=== PATIENT | female | born 1970 | race Caucasian/White ===

== ENCOUNTER → 2016-05-29 | Outpatient (REF) | payer OTHER | LOC: M LAB REF 17:38 | PROVIDERS: ATTEND Family Medicine | DX: Z20.2 Contact with and (suspected) exposure to infections with a predominantly sexual mode of transmission (principal) ==

== ENCOUNTER → 2016-06-12 | Outpatient (REF) | payer OTHER | LOC: M LAB REF 11:57 | PROVIDERS: ATTEND Family Medicine | DX: R55 Syncope and collapse (principal) ==

== ENCOUNTER → 2016-08-12 | Outpatient (CLI) | payer OTHER ==
--- NOTE | 2016-08-12 15:38 | REP ---
Clinical: Right lower extremity pain . Technique: Chavez scale and color Doppler evaluation using linear high frequency transducer. Findings: Ultrasound examination of the right lower extremity deep venous structures from the common femoral vein to the popliteal vein demonstrates normal compressibility flow and wave patterns in response to respiration and augmentation. There is no evidence for deep venous thrombosis. Impression: No evidence for deep venous thrombosis. Signed by Zackary Roman MD 08/12/2016 03:29 P
== END ==
LOC: M RAD 15:09
PROVIDERS: ATTEND Nurse Practitioner Family
DX: M79.661 Pain in right lower leg (principal)

== ENCOUNTER → 2016-09-04 | Outpatient (REF) | payer OTHER ==
[2016-09-04 14:13] LABS: CALCIUM OXALATE CRYSTALS SMALL
== END ==
LOC: M LAB REF 13:04
PROVIDERS: ATTEND Family Medicine
DX: R39.0 Extravasation of urine (principal)

== ENCOUNTER → 2016-09-08 | Outpatient (REF) | payer OTHER ==
[2016-09-08 19:33] LABS: VITAMIN B12 LEVEL 291 PG/ML (247-911)
[2016-09-08 19:59] LABS: FERRITIN 13 NG/ML (8-252)
== END ==
LOC: M LAB REF 17:28
PROVIDERS: ATTEND Family Medicine
DX: D64.9 Anemia, unspecified (principal)

== ENCOUNTER → 2016-09-25 | Outpatient (REF) | payer OTHER ==
[~2016-09-25] MED LIST: LISI10TA4 PO; WELLTAB40 PO; XANA0.25 PO; ZOLO100T PO
== END ==
LOC: M LAB REF 12:58
PROVIDERS: ATTEND Nurse Practitioner Family
DX: R68.2 Dry mouth, unspecified (principal)

== ENCOUNTER → 2016-10-16 | Outpatient (CLI) | payer OTHER ==
[~2016-10-16] MED LIST changes: +METHACHOLINE KIT (J7674) INH ONE
--- NOTE | 2016-10-16 12:08 | PFTRPT ---
Tech: Junior NIXON RRT Age: 46 Sex: Female Race: Height: 66.00 Inches Weight: 260.00 Lbs BSA: 2.24 Diagnosis: J45.31 METHACHOLINE CHALLENGE REPORT: ORDERING PROVIDER: Marek Keen DATE OF SERVICE: 10/16/16 INTERPRETATION: The study was of excellent technical quality. Under protocol, methacholine was administered. At a dose of 2.5 mg (13.875 CDUs), a 28% decline in the FEV1 was noted. The PC20 of 0.73 is significant. Flow rates returned to baseline post bronchodilator administration. IMPRESSION: Positive methacholine challenge study. MTDD
== END ==
LOC: M CARPUL 10:56
PROVIDERS: ATTEND Nurse Practitioner Family
DX: J45.31 Mild persistent asthma with (acute) exacerbation (principal)

== ENCOUNTER 2016-10-31 09:21 | Emergency (ER) | payer OTHER ==
[~2016-10-31] VITALS: Ht 167.6 cm; Wt 116.8 kg
[2016-10-31] MEDS ORDERED: XANA0.25 PO (09:29)
[2016-10-31] MEDS ORDERED: LISI10TA4 PO (09:29)
[2016-10-31] MEDS ORDERED: WELLTAB40 PO (09:29)
[2016-10-31] MEDS ORDERED: ZOLO100T PO (09:29)
[2016-10-31] MEDS ORDERED: RABIES VACCINE HUMAN 2.5 INTERNATIONAL UNITS/ML VIAL (90675) IM ONE (10:00)
[2016-10-31] MEDS ORDERED: RABIES IMMUNE GLOBULIN 1500 INTERNATIONAL UNITS/10 ML VIAL (90375) IM ONE ×2 (10:00)
[2016-10-31] MEDS ORDERED: RABIES IMMUNE GLOBULIN 300 INTERNATIONAL UNITS/2 ML VIAL (90375) IM ONE (10:15)
[2016-10-31 11:08] VITALS: BP 119/79
== END 2016-10-31 11:19 | disposition home or self-care (01) ==
LOC: M ED 09:21
DX: Z20.3 Contact with and (suspected) exposure to rabies (principal); Z23 Encounter for immunization; I10 Essential (primary) hypertension; J45.909 Unspecified asthma, uncomplicated; Z86.718 Personal history of other venous thrombosis and embolism; Z87.891 Personal history of nicotine dependence; Z79.899 Other long term (current) drug therapy; Z91.041 Radiographic dye allergy status; Z88.8 Allergy status to other drugs, medicaments and biological substances; Z88.5 Allergy status to narcotic agent

== ENCOUNTER → 2016-11-19 | Outpatient (REF) | payer OTHER ==
[~2016-11-19] MED LIST changes: -METHACHOLINE KIT (J7674) INH ONE
[2016-11-19 14:37] LABS: CONTROL LINE HPYORI INT CTR LINE PRESENT
[2016-11-19 14:39] LABS: AMYLASE 23 U/L (25-115)
== END ==
LOC: M LAB REF 13:32
PROVIDERS: ATTEND Nurse Practitioner Family
DX: R10.13 Epigastric pain (principal)

== ENCOUNTER → 2017-02-09 | Outpatient (REF) | payer OTHER | LOC: M LAB REF 13:58 | PROVIDERS: ATTEND Physician Assistant Medical | DX: J02.9 Acute pharyngitis, unspecified (principal) ==

== ENCOUNTER 2017-03-03 11:54 | Emergency (ER) | payer OTHER ==
[~2017-03-03] VITALS: Ht 167.6 cm; Wt 119.5 kg
[2017-03-03] MEDS ORDERED: CODE30TA3 PO (12:06)
[2017-03-03] MEDS ORDERED: ASPIRIN 81 MG CHEW TABLET PO ONE (12:15)
[2017-03-03 12:34] LABS: BASO % 0.3 % (0.0-1.0); EOS # 0.1 10^3/uL (0.0-0.50); IMMATURE GRANULOCYTE % 0.2 % (0-0); LYMPH # 1.7 10^3/uL (1.5-4.5); LYMPH % 28.2 % (24.0-44.0); MEAN CORPUSCULAR HEMOGLOBIN 29.8 pg (27.0-33.0); MEAN CORPUSCULAR HGB CONC 32.6 g/dl (32.0-36.5); MEAN CORPUSCULAR VOLUME 91.3 fl (80.0-96.0); MONO # 0.5 10^3/uL (0.0-0.8); MONO % 8.3 % (0.0-5.0); NEUTROPHILS # 3.8 10^3/uL (1.8-7.7); PLATELET COUNT, AUTOMATED 262 10^3/uL (150-450); RED CELL DISTRIBUTION WIDTH 12.8 % (11.5-14.5); WHITE BLOOD COUNT 6.1 10^3/uL (4.0-10.0)
--- NOTE | 2017-03-03 12:37 | ECGEPIP ---
Stationary ECG Study 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
--- NOTE | 2017-03-03 12:45 | REP ---
Chest one-view HISTORY: Chest pain Comparison: None The lungs are clear. The heart is normal in size. The pulmonary vasculature is normal in appearance. Impression: No acute disease. Signed by Marek Herrera MD 03/03/2017 12:36 P
[2017-03-03] MEDS ORDERED: GI COCKTAIL 50ML BTL(HYOSCYAMINE/MAALOX/LIDOCAINE VISCOUS)(1:3:1) PO ONE (13:00)
[2017-03-03 13:01] LABS: ALBUMIN 3.2 GM/DL (3.2-5.2); ALBUMIN/GLOBULIN RATIO 0.89 (1.00-1.93); ALKALINE PHOSPHATASE 93 U/L (45-117); ALT/SGPT 29 U/L (12-78); ANION GAP 4 MEQ/L (8-16); AST/SGOT 40 U/L (7-37); BILIRUBIN,DIRECT < 0.1 MG/DL (0.0-0.2); BILIRUBIN,TOTAL 0.3 MG/DL (0.2-1.0); BLOOD UREA NITROGEN 16 MG/DL (7-18); CALCIUM LEVEL 8.2 MG/DL (8.5-10.1); CARBON DIOXIDE LEVEL 29 MEQ/L (21-32); CHLORIDE LEVEL 105 MEQ/L (98-107); CREATININE FOR GFR 0.82 MG/DL (0.55-1.02); GLOMERULAR FILTRATION RATE > 60.0 (>58); GLUCOSE, FASTING 87 MG/DL (70-105); POTASSIUM SERUM 4.2 MEQ/L (3.5-5.1); SODIUM LEVEL 138 MEQ/L (136-145); TOTAL PROTEIN 6.8 GM/DL (6.4-8.2)
[2017-03-03 18:12] VITALS: BP 120/79
--- NOTE | 2017-03-04 06:56 | ECGEPIP ---
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
== END 2017-03-03 18:20 | disposition home or self-care (01) ==
LOC: M ED 11:54
DX: K29.70 Gastritis, unspecified, without bleeding (principal); R10.13 Epigastric pain; R94.31 Abnormal electrocardiogram [ECG] [EKG]; I10 Essential (primary) hypertension; J45.909 Unspecified asthma, uncomplicated; E55.9 Vitamin D deficiency, unspecified; F41.9 Anxiety disorder, unspecified; F32.9 Major depressive disorder, single episode, unspecified; D64.9 Anemia, unspecified; Z98.84 Bariatric surgery status; Z87.891 Personal history of nicotine dependence; Z82.49 Family history of ischemic heart disease and other diseases of the circulatory system; Z79.899 Other long term (current) drug therapy; Z88.5 Allergy status to narcotic agent; Z91.041 Radiographic dye allergy status; Z88.8 Allergy status to other drugs, medicaments and biological substances

== ENCOUNTER → 2017-03-16 | Outpatient (REF) | payer OTHER ==
[~2017-03-16] MED LIST changes: +CODE30TA3 PO
== END ==
LOC: M LAB REF 18:21
PROVIDERS: ATTEND Family Medicine
DX: E53.8 Deficiency of other specified B group vitamins (principal)

== ENCOUNTER → 2017-04-08 | Outpatient (CLI) | payer OTHER ==
[2017-04-08 13:14] LABS: BASO # 0.1 10^3/uL (0.0-0.2); BASO % 0.7 % (0.0-1.0); EOS # 0.1 10^3/uL (0.0-0.50); HEMATOCRIT 37.1 % (36.0-47.0); IMMATURE GRANULOCYTE % 0.1 % (0-0); LYMPH # 1.8 10^3/uL (1.5-4.5); LYMPH % 26.4 % (24.0-44.0); MEAN CORPUSCULAR HEMOGLOBIN 29.6 pg (27.0-33.0); MEAN CORPUSCULAR HGB CONC 32.3 g/dl (32.0-36.5); MEAN CORPUSCULAR VOLUME 91.4 fl (80.0-96.0); MONO # 0.6 10^3/uL (0.0-0.8); MONO % 8.5 % (0.0-5.0); NEUTROPHILS # 4.3 10^3/uL (1.8-7.7); NEUTROPHILS % 63.3 % (36.0-66.0); PLATELET COUNT, AUTOMATED 270 10^3/uL (150-450); RED BLOOD COUNT 4.06 10^6/uL (4.00-5.40); RED CELL DISTRIBUTION WIDTH 12.8 % (11.5-14.5); WHITE BLOOD COUNT 6.7 10^3/uL (4.0-10.0)
[2017-04-08 13:48] LABS: ALBUMIN 3.4 GM/DL (3.2-5.2); ALBUMIN/GLOBULIN RATIO 1.03 (1.00-1.93); ALKALINE PHOSPHATASE 81 U/L (45-117); ALT/SGPT 20 U/L (12-78); ANION GAP 7 MEQ/L (8-16); AST/SGOT 13 U/L (7-37); BILIRUBIN,TOTAL 0.2 MG/DL (0.2-1.0); BLOOD UREA NITROGEN 19 MG/DL (7-18); CALCIUM LEVEL 8.6 MG/DL (8.5-10.1); CARBON DIOXIDE LEVEL 24 MEQ/L (21-32); CHLORIDE LEVEL 110 MEQ/L (98-107); CREATININE FOR GFR 0.85 MG/DL (0.55-1.02); GLOMERULAR FILTRATION RATE > 60.0 (>58); GLUCOSE, FASTING 81 MG/DL (70-105); POTASSIUM SERUM 4.6 MEQ/L (3.5-5.1); RHEUMATOID FACTOR QUANT < 10.0 IU/ML (0-15.0); SODIUM LEVEL 141 MEQ/L (136-145); TOTAL PROTEIN 6.7 GM/DL (6.4-8.2)
[2017-04-08 14:03] LABS: ERYTHROCYTE SEDIMENTATION RATE 8 mm/hr (0-20)
[2017-04-09 10:46] LABS: ALBUMIN 3.75 GM/DL (3.29-5.55); ALPHA-1-GLOBULIN % 4.9 % (2.9-4.9); ALPHA-1-GLOBULINS 0.33 GM/DL (0.17-0.41); ALPHA-2-GLOBULINS 0.58 GM/DL (0.42-0.99); ALPHA-2-GLOBULINS % 8.6 % (7.1-11.8); BETA-1-GLOBULINS 0.52 GM/DL (0.28-0.60); BETA-1-GLOBULINS % 7.7 % (4.7-7.2); BETA-2-GLOBULINS 0.36 GM/DL (0.19-0.55); BETA-2-GLOBULINS % 5.4 % (3.2-6.5); GAMMA GLOBULIN % 17.4 % (11.1-18.8); GAMMA GLOBULINS 1.17 GM/DL (0.65-1.58)
[2017-04-14 00:08] LABS: ANCA-ATYPICAL <1:20 titer (Neg:<1:20); ANGIOTENSIN 1 CONVERTING ENZYM 31 U/L (14-82); ANTI DOUBLE STRAND-DNA AB 2 IU/mL (0-9); ANTINUCLEAR ANTIBODIES DIRECT Negative (Negative); CERULOPLASMIN 35.2 mg/dL (19.0-39.0); COPPER PLASMA 134 ug/dL (72-166); CYTOPLASMIC NEUTROP AB ANCA-C <1:20 titer (Neg:<1:20); LEAD BLOOD ADULT <1 ug/dL (0-19); Lyme Disease IgG/IgM Antibodie <0.91 ISR (0.00-0.90); Lyme Disease IgM Ab Quantitati <0.80 index (0.00-0.79); MERCURY LEVEL None Detected ug/L (0.0-14.9); PERINUCLEAR AB ANCA-P <1:20 titer (Neg:<1:20); SJOGREN'S ANTI SS-A <0.2 AI (0.0-0.9); SJOGREN'S ANTI SS-B <0.2 AI (0.0-0.9); VITAMIN B1 LEVEL WHOLE BLOOD 124.4 nmol/L (66.5-200.0); VITAMIN B6,PYRIDOXAL PHOSPHATE 5.6 ug/L (2.0-32.8); VITAMIN E LEVEL 9.2 mg/L (5.3-16.8)
[2017-04-14 10:45] LABS: DRVV SCREEN 41.6 SEC
== END ==
LOC: M SMT 09:39
DX: G60.9 Hereditary and idiopathic neuropathy, unspecified (principal)
CPT/HCPCS: 82525

== ENCOUNTER → 2017-05-21 | Outpatient (CLI) | payer OTHER ==
[2017-05-21 19:02] LABS: FREE T3 2.8 PG/ML (2.2-4.0); FREE T4 1.13 NG/DL (0.76-1.46); IMMUNOGLOBULIN G 995 MG/DL (681-1648)
[2017-05-22 09:06] LABS: THYROGLOBULIN ANTIBODY < 15.0 U/ML (<60.0); THYROID PEROXIDASE ANTIBODY < 28.0 U/ML (<60.0)
== END ==
LOC: M SMT 12:17
DX: F41.9 Anxiety disorder, unspecified (principal)
CPT/HCPCS: 86800

== ENCOUNTER → 2017-05-27 | Outpatient (REF) | payer OTHER ==
[2017-05-29 14:36] LABS: ALUMINUM LEVEL 7 ug/L (0-9)
== END ==
LOC: M LAB REF 13:33
DX: F41.9 Anxiety disorder, unspecified (principal)

== ENCOUNTER → 2017-06-18 | Outpatient (REF) | payer OTHER ==
[2017-06-18 14:39] LABS: LUTEINIZING HORMONE 6.3 mIU/mL; PROGESTERONE 0.4 NG/ML; TOTAL 25(OH) VITAMIN D 24.7 NG/ML (30.0-100.0)
[2017-06-18 14:40] LABS: FOLATE 8.8 NG/ML; FOLLICLE STIMULATING HORMONE 5.9 mIU/mL; VITAMIN B12 LEVEL 458 PG/ML
[2017-06-18 14:42] LABS: ANION GAP 5 MEQ/L (8-16); BLOOD UREA NITROGEN 13 MG/DL (7-18); CALCIUM LEVEL 8.4 MG/DL (8.5-10.1); CARBON DIOXIDE LEVEL 28 MEQ/L (21-32); CHLORIDE LEVEL 109 MEQ/L (98-107); CREATININE FOR GFR 0.83 MG/DL (0.55-1.30); GLOMERULAR FILTRATION RATE > 60.0 (>58); GLUCOSE, FASTING 75 MG/DL (70-100); POTASSIUM SERUM 4.5 MEQ/L (3.5-5.1); SODIUM LEVEL 142 MEQ/L (136-145)
[2017-06-23 10:14] LABS: DEHYDROEPIANDROSTERONE UNCONJ 84 ng/dL (31-701); ESTROGENS TOTAL 297 pg/mL (.); METHYLMALONIC ACID 233 nmol/L (0-378); TESTOSTERONE FREE (DIRECT) 1.2 pg/mL (0.0-4.2)
[2017-06-23 10:14] LABS: INSULIN LEVEL 5.6 uIU/mL (2.6-24.9)
== END ==
LOC: M LAB REF 13:27
DX: E53.8 Deficiency of other specified B group vitamins (principal); I10 Essential (primary) hypertension; F41.9 Anxiety disorder, unspecified; F41.0 Panic disorder [episodic paroxysmal anxiety]
CPT/HCPCS: 82746

== ENCOUNTER → 2017-07-09 | Outpatient (CLI) | payer OTHER ==
[~2017-07-09] MED LIST changes: -CODE30TA3 PO; +LIDOCAINE 1% SDV INJ 30 ML VIAL As Ordered; -LISI10TA4 PO; +MIDAZOLAM INJ 2 MG/2 ML VIAL (J2250) As Ordered; -WELLTAB40 PO; -XANA0.25 PO; -ZOLO100T PO; +fentaNYL 100 MCG/2 ML INJECTION (J3010) As Ordered
[2017-07-09 16:14] LABS: CSF TUBE# GLU TUBE 1; CSF TUBE# TP TUBE 1; GLUCOSE CSF 51 MG/DL (40-75); TOTAL PROTEIN,CSF 28.9 MG/DL (15-45)
[2017-07-09 16:35] LABS: CSF RBC < 2 10^3/uL (<2)
[2017-07-09 16:36] LABS: APPEARANCE, CSF CLEAR (CLEAR); COLOR, CSF COLORLESS (COLORLESS); CSF DIFF IF INDICATED? NO (NO); CSF WBC 1 /uL (0-10)
[2017-07-09 16:37] LABS: CSF TUBE# CELL CNT TUBE 2
[2017-07-14 00:07] LABS: IMMUNOGLOBULIN G CSF 1.7 mg/dL (0.0-8.6)
== END ==
LOC: M PAIN 12:30
DX: G37.9 Demyelinating disease of central nervous system, unspecified (principal)
CPT/HCPCS: J2250

== ENCOUNTER → 2017-10-22 | Outpatient (CLI) | payer OTHER ==
[2017-10-22 13:24] LABS: BASO % 0.6 % (0.0-1.0); EOS # 0.1 10^3/uL (0.0-0.50); EOS % 1.3 % (0.0-3.0); HEMATOCRIT 39.2 % (36.0-47.0); HEMOGLOBIN 12.5 g/dl (12.0-15.5); IMMATURE GRANULOCYTE % 0.3 % (0-3.0); LYMPH # 2.1 10^3/uL (1.5-4.5); LYMPH % 33.3 % (24.0-44.0); MEAN CORPUSCULAR HGB CONC 31.9 g/dl (32.0-36.5); MONO # 0.5 10^3/uL (0.0-0.8); NEUTROPHILS # 3.5 10^3/uL (1.8-7.7); NEUTROPHILS % 56.5 % (36.0-66.0); PLATELET COUNT, AUTOMATED 293 10^3/uL (150-450); RED BLOOD COUNT 4.17 10^6/uL (4.00-5.40); RED CELL DISTRIBUTION WIDTH 13.3 % (11.5-14.5); WHITE BLOOD COUNT 6.2 10^3/uL (4.0-10.0)
[2017-10-22 14:10] LABS: ALBUMIN 3.3 GM/DL (3.2-5.2); ALBUMIN/GLOBULIN RATIO 0.85 (1.00-1.93); ALKALINE PHOSPHATASE 79 U/L (45-117); ALT/SGPT 25 U/L (12-78); ANION GAP 7 MEQ/L (8-16); AST/SGOT 14 U/L (7-37); BILIRUBIN,TOTAL 0.3 MG/DL (0.2-1.0); BLOOD UREA NITROGEN 20 MG/DL (7-18); CALCIUM LEVEL 8.5 MG/DL (8.5-10.1); CARBON DIOXIDE LEVEL 24 MEQ/L (21-32); CHLORIDE LEVEL 112 MEQ/L (98-107); CREATININE FOR GFR 0.94 MG/DL (0.55-1.30); FREE T4 1.02 NG/DL (0.76-1.46); GLOMERULAR FILTRATION RATE > 60.0 (>58); GLUCOSE, FASTING 71 MG/DL (70-100); POTASSIUM SERUM 4.7 MEQ/L (3.5-5.1); SODIUM LEVEL 143 MEQ/L (136-145); TOTAL PROTEIN 7.2 GM/DL (6.4-8.2)
[2017-10-24 00:09] LABS: Lyme Disease IgG/IgM Antibodie <0.91 ISR (0.00-0.90); Lyme Disease IgM Ab Quantitati <0.80 index (0.00-0.79)
== END ==
LOC: M SMT 08:45
DX: R53.81 Other malaise (principal)
CPT/HCPCS: 84443

== ENCOUNTER → 2018-01-14 | Outpatient (CLI) | payer OTHER ==
[2018-01-14 14:00] LABS: ALBUMIN 3.5 GM/DL (3.2-5.2); ALBUMIN/GLOBULIN RATIO 1.06 (1.00-1.93); ALKALINE PHOSPHATASE 84 U/L (45-117); ALT/SGPT 23 U/L (12-78); ANION GAP 6 MEQ/L (8-16); AST/SGOT 16 U/L (7-37); BILIRUBIN,TOTAL 0.2 MG/DL (0.2-1.0); BLOOD UREA NITROGEN 19 MG/DL (7-18); CALCIUM LEVEL 8.7 MG/DL (8.5-10.1); CARBON DIOXIDE LEVEL 26 MEQ/L (21-32); CHLORIDE LEVEL 107 MEQ/L (98-107); FREE T3 2.9 PG/ML (2.2-4.0); FREE T4 1.04 NG/DL (0.76-1.46); GLOMERULAR FILTRATION RATE > 60.0 (>58); GLUCOSE, FASTING 94 MG/DL (70-100); POTASSIUM SERUM 4.9 MEQ/L (3.5-5.1); SODIUM LEVEL 139 MEQ/L (136-145); TOTAL PROTEIN 6.8 GM/DL (6.4-8.2)
[2018-01-14 14:03] LABS: FOLLICLE STIMULATING HORMONE 12.7 mIU/mL; LUTEINIZING HORMONE 13.1 mIU/mL; PROGESTERONE 0.8 NG/ML; TOTAL 25(OH) VITAMIN D 40.3 NG/ML (30.0-100.0)
[2018-01-20 08:07] LABS: ANTINUCLEAR ANTIBODIES DIRECT Negative (Negative); DEHYDROEPIANDROSTERONE UNCONJ 55 ng/dL (31-701); TESTOSTERONE FREE (DIRECT) < 0.2 pg/mL (0.0-4.2)
[2018-01-20 08:07] LABS: ESTROGENS TOTAL 117 pg/mL (.)
== END ==
LOC: M SMT 10:45
DX: F41.0 Panic disorder [episodic paroxysmal anxiety] (principal); E28.0 Estrogen excess; E03.8 Other specified hypothyroidism
CPT/HCPCS: 83001

== ENCOUNTER → 2020-03-14 | Outpatient (REF) | payer BC, OTHER ==
[~2020-03-14] MED LIST changes: +ACET300T47 PO; -LIDOCAINE 1% SDV INJ 30 ML VIAL As Ordered; +LISI10TA4 PO; -MIDAZOLAM INJ 2 MG/2 ML VIAL (J2250) As Ordered; +WELLTAB40 PO; +XANA0.25 PO; +ZOLO100T PO; -fentaNYL 100 MCG/2 ML INJECTION (J3010) As Ordered
[2020-03-14 17:59] LABS: AMORPHOUS SEDIMENT MODERATE (NEGATIVE); APPEARANCE, URINE TURBID (CLEAR); BACTERIA, URINE AUTO NEGATIVE (NEGATIVE); BILIRUBIN, URINE AUTO NEGATIVE (NEGATIVE); BLOOD, URINE BLOOD NEGATIVE (NEGATIVE); COLOR, URINE YELLOW (YELLOW); GLUCOSE, URINE (UA) AUTO NEGATIVE (NEGATIVE); KETONE, URINE AUTO NEGATIVE (NEGATIVE); LEUKOCYTE ESTERASE, URINE AUTO NEGATIVE (NEGATIVE); MUCUS, URINE SMALL (NEGATIVE); NITRITE, URINE AUTO NEGATIVE (NEGATIVE); PROTEIN, URINE AUTO NEGATIVE (NEGATIVE); RBC, URINE AUTO 0 /HPF (0-3); SPECIFIC GRAVITY URINE AUTO 1.021 (1.002-1.035); SQUAMOUS EPITHELIAL CELL UR AU 2 /HPF (0-6); UROBILINOGEN, URINE AUTO 0.2 mg/dL (0.0-2.0); WBC, URINE AUTO 0 /HPF (0-3)
== END ==
LOC: M SMT 16:54
PROVIDERS: ATTEND Nurse Practitioner Women's Health
DX: R35.0 Frequency of micturition (principal)

== ENCOUNTER 2021-11-04 09:57 | Day surgery (SDC) | payer BC ==
[~2021-11-04] VITALS: Ht 167.6 cm; Wt 120.2 kg
[~2021-11-04 09:57] MED LIST changes: +ARMO1TAB PO; +B-121KIT IJ; +BREO1INH INH; +CYMB60CA4 PO; +ERGO500029 PO; +FAMO40TA3 PO; +FERR240T PO; +FLON1SPR; +LEVO112T2 PO; +LISI10TA22 PO; -LISI10TA4 PO; +MACR100C43 PO; +METF10004 PO; +NS 1,000 ML IV ONE; +OMEP40CA5 PO; +VENTAER INH
[2021-11-04] MEDS ORDERED: fentaNYL 100 MCG/2 ML INJECTION As Ordered ONE (12:38)
[2021-11-04] MEDS ORDERED: propofoL 200 MG/20 ML VIAL As Ordered ONE ×2 (12:40→12:46)
[2021-11-04] MEDS ORDERED: LIDOCAINE 2% 100MG/5ML SDV (FOR ANES.) As Ordered ONE (12:40)
[2021-11-04 13:37] VITALS: BP 132/76
== END 2021-11-04 13:40 | disposition home or self-care (01) ==
LOC: M OPP 09:57
PROVIDERS: ATTEND Internal Medicine Gastroenterology
DX: R05.3 Chronic cough (principal); K21.9 Gastro-esophageal reflux disease without esophagitis; R49.0 Dysphonia; Z98.0 Intestinal bypass and anastomosis status; I10 Essential (primary) hypertension; E03.9 Hypothyroidism, unspecified; D50.9 Iron deficiency anemia, unspecified; M79.7 Fibromyalgia; F41.9 Anxiety disorder, unspecified; F32.A Depression, unspecified; G43.909 Migraine, unspecified, not intractable, without status migrainosus; J45.909 Unspecified asthma, uncomplicated; G47.30 Sleep apnea, unspecified; E28.2 Polycystic ovarian syndrome; Z86.718 Personal history of other venous thrombosis and embolism; Z86.14 Personal history of Methicillin resistant Staphylococcus aureus infection; Z98.84 Bariatric surgery status; Z88.2 Allergy status to sulfonamides; Z88.5 Allergy status to narcotic agent; Z88.8 Allergy status to other drugs, medicaments and biological substances; Z91.041 Radiographic dye allergy status; Z79.51 Long term (current) use of inhaled steroids; Z79.899 Other long term (current) drug therapy; Z80.0 Family history of malignant neoplasm of digestive organs
CPT/HCPCS: 43235; 91035; J3010

== ENCOUNTER → 2023-07-21 | Outpatient (REF) | payer BC ==
[~2023-07-21] MED LIST changes: -NS 1,000 ML IV ONE
[2023-07-21 13:07] LABS: APPEARANCE, URINE CLEAR (CLEAR); BACTERIA, URINE AUTO NEGATIVE (NEGATIVE); BILIRUBIN, URINE AUTO NEGATIVE (NEGATIVE); BLOOD, URINE BLOOD NEGATIVE (NEGATIVE); COLOR, URINE YELLOW (YELLOW); GLUCOSE, URINE (UA) AUTO NEGATIVE (NEGATIVE); KETONE, URINE AUTO NEGATIVE (NEGATIVE); LEUKOCYTE ESTERASE, URINE AUTO NEGATIVE (NEGATIVE); NITRITE, URINE AUTO NEGATIVE (NEGATIVE); PROTEIN, URINE AUTO NEGATIVE (NEGATIVE); RBC, URINE AUTO 0 /HPF (0-3); SPECIFIC GRAVITY URINE AUTO 1.016 (1.002-1.035); SQUAMOUS EPITHELIAL CELL UR AU 2 /HPF (0-6); UROBILINOGEN, URINE AUTO 0.2 mg/dL (0.0-2.0); WBC, URINE AUTO 0 /HPF (0-3)
== END ==
LOC: M SMT 12:02
PROVIDERS: ATTEND Nurse Practitioner Family
DX: Z87.440 Personal history of urinary (tract) infections (principal)

== ENCOUNTER → 2023-09-12 | Outpatient (REF) | payer BC ==
[2023-09-12 18:12] LABS: APPEARANCE, URINE CLEAR (CLEAR); BACTERIA, URINE AUTO NEGATIVE (NEGATIVE); BILIRUBIN, URINE AUTO NEGATIVE (NEGATIVE); BLOOD, URINE BLOOD NEGATIVE (NEGATIVE); COLOR, URINE YELLOW (YELLOW); GLUCOSE, URINE (UA) AUTO NEGATIVE (NEGATIVE); KETONE, URINE AUTO NEGATIVE (NEGATIVE); LEUKOCYTE ESTERASE, URINE AUTO NEGATIVE (NEGATIVE); MUCUS, URINE SMALL (NEGATIVE); NITRITE, URINE AUTO NEGATIVE (NEGATIVE); PROTEIN, URINE AUTO NEGATIVE (NEGATIVE); RBC, URINE AUTO 0 /HPF (0-3); SPECIFIC GRAVITY URINE AUTO 1.017 (1.002-1.035); SQUAMOUS EPITHELIAL CELL UR AU 1 /HPF (0-6); UROBILINOGEN, URINE AUTO 0.2 mg/dL (0.0-2.0); WBC, URINE AUTO 0 /HPF (0-3)
[2023-09-12 20:01] LABS: Trichomonas vaginalis (AMP) NOT DETECTED (NEGATIVE)
[2023-09-12 20:25] LABS: GC DNA AMPLIFICATION NEGATIVE (NEGATIVE)
== END ==
LOC: M LAB REF 17:41
PROVIDERS: ATTEND Physician Assistant Medical
DX: N39.0 Urinary tract infection, site not specified (principal)

== ENCOUNTER → 2024-02-05 | Outpatient (REF) | payer BC ==
[2024-02-05 14:05] LABS: APPEARANCE, URINE HAZY (CLEAR); BACTERIA, URINE AUTO 1+ (NEGATIVE); BILIRUBIN, URINE AUTO NEGATIVE (NEGATIVE); BLOOD, URINE BLOOD NEGATIVE (NEGATIVE); COLOR, URINE YELLOW (YELLOW); GLUCOSE, URINE (UA) AUTO NEGATIVE (NEGATIVE); KETONE, URINE AUTO NEGATIVE (NEGATIVE); LEUKOCYTE ESTERASE, URINE AUTO 2+ (NEGATIVE); MUCUS, URINE SMALL (NEGATIVE); NITRITE, URINE AUTO NEGATIVE (NEGATIVE); PROTEIN, URINE AUTO NEGATIVE (NEGATIVE); RBC, URINE AUTO 1 /HPF (0-3); SPECIFIC GRAVITY URINE AUTO 1.017 (1.002-1.035); SQUAMOUS EPITHELIAL CELL UR AU 1 /HPF (0-6); URIC ACID CRYSTALS SMALL; UROBILINOGEN, URINE AUTO 0.2 mg/dL (0.0-2.0); WBC, URINE AUTO 18 /HPF (0-3)
== END ==
LOC: M SMT 13:00
PROVIDERS: ATTEND Nurse Practitioner Family
DX: R39.15 Urgency of urination (principal)